=== PATIENT | female | born 1975 | race Caucasian/White ===

== ENCOUNTER 2017-10-14 20:25 | Emergency (ER) | payer OTHER, MEDICAID ==
[~2017-10-14] VITALS: Ht 152.4 cm; Wt 68.0 kg
[~2017-10-14 20:25] MED LIST: BACTRIM DS TAB1 EACH PO; CLEOCIN HCL150 MG PO; CLONAZEPAM; CYCLOBENZAPRINE5 MG PO; EXCEDRIN MIGRAINE; FIORICET 50-321 EACH PO; HTN MED; HUMIRA10 MG/0.2; HYDROCODONE-AP1 EAC6 PO; IBUPROFEN 800800 M1 PO; KEFLEX500 MG PO; LIALDA1.2 GM PO; LISINOPRIL; METROGEL-VAGINA70 GM VG; NEURONTIN 300300 M1 PO; NEXIUM; NORCO 5-325 TA1 EACH PO; NORCO 7.5-3251 EACH PO; PERCOCET 10-321 EACH PO; PERCOCET 5-3251 EACH PO; PHENERGAN 25 MG25 M1 PO; PREDNISONE; PREDNISONE 20 M20 MG PO; PRESTIQUE; PROPRANOLOL; REGLAN 10 MG TA10 MG; SEROQUEL; TENEX1 MG PO; TOPAMAX; ULTRAM 50MG TAB50 MG PO; ZOLOFT PO; [UNRECOGNIZED DRUG - OTHER]
[2017-10-14] MEDS ORDERED: NORCO 5-325 TA1 EACH PO (21:34)
[2017-10-14] MEDS ORDERED: FLEXERIL PO (21:34)
[2017-10-14] MEDS ORDERED: NAPROSYN500 MG PO (21:34)
[2017-10-14 21:48] VITALS: BP 166/83
== END 2017-10-14 21:49 | disposition home or self-care (01) ==
LOC: M.ERS 20:25
DX: S39.012A Strain of muscle, fascia and tendon of lower back, initial encounter (principal); I10 Essential (primary) hypertension; F43.10 Post-traumatic stress disorder, unspecified; K50.90 Crohn's disease, unspecified, without complications; F17.210 Nicotine dependence, cigarettes, uncomplicated; V49.9XXA Car occupant (driver) (passenger) injured in unspecified traffic accident, initial encounter; Y93.89 Activity, other specified; Y92.89 Other specified places as the place of occurrence of the external cause; Y99.8 Other external cause status

== ENCOUNTER 2017-11-01 17:05 | Emergency (ER) | payer OTHER, MEDICAID ==
[~2017-11-01] VITALS: Ht 152.4 cm; Wt 72.6 kg
[~2017-11-01 17:05] MED LIST changes: +FLEXERIL PO; +NAPROSYN500 MG PO
[2017-11-01 17:08] VITALS: BP 127/84
[2017-11-01] MEDS ORDERED: OMEPRAZOLE 20 M20 M1 PO (17:16)
[2017-11-01] MEDS ORDERED: ZANTAC 150MG T150 MG PO (17:16)
[2017-11-01] MEDS ORDERED: STELARA45 MG/0.1 PO (17:17)
[2017-11-01] MEDS ORDERED: IMURAN 50MG TAB50 M1 PO (17:17)
[2017-11-01 17:33] LABS: ABSOLUTE BASOPHILS 0.1 thou/uL (0.0-0.2); ABSOLUTE EOSINOPHILS 0.1 thou/uL (0.0-0.7); ABSOLUTE LYMPHOCYTES 2.3 thou/uL (0.8-5.3); ABSOLUTE MONOCYTES 0.6 thou/uL (0.0-1.2); ABSOLUTE NEUTROPHILS 8.4 thou/uL (1.6-8.1); BASOPHILS 0.9 %; EOSINOPHILS 1.1 %; HEMATOCRIT 36.2 % (37.0-47.0); HEMOGLOBIN 11.9 gm/dL (12.0-15.0); LYMPHOCYTES 19.9 %; MCH 28.7 pg (26.0-34.0); MCHC 32.8 g/dL (28.0-37.0); MCV 87.5 fL (80.0-100.0); MONOCYTES 5.1 %; MPV 9.3 fl. (7.2-11.1); NUCLEATED RBCS 0 /100WBC; PLATELET COUNT* 236 thou/uL (150-400); RBC 4.14 mil/uL (4.20-5.00); RDW-CV 14.6 % (10.5-14.5); WBC 11.5 thou/uL (4.0-11.0)
[2017-11-01 17:41] LABS: ANION GAP 8 mmol/L (7-16); BUN 16 mg/dL (7-18); CALCIUM 8.4 mg/dL (8.5-10.1); CHLORIDE 105 mmol/L (98-107); CO2 26 mmol/L (21-32); CREATININE 0.8 mg/dL (0.6-1.3); GLUCOSE 96 mg/dL (70-99); POTASSIUM 3.2 mmol/L (3.5-5.1); SODIUM 139 mmol/L (136-145)
[2017-11-01 17:42] LABS: APTT 25.4 Seconds (25.0-31.3); PROTIME 10.2 Seconds (9.20-11.50)
[2017-11-01 17:48] LABS: ALKALINE PHOSPHATASE 83 U/L (46-116); LIPASE 105 U/L (73-393); SGOT 14 U/L (15-37); SGPT 25 U/L (30-65); TOTAL BILIRUBIN 0.1 mg/dL (<0.1-1.0); TOTAL PROTEIN 6.7 g/dL (6.4-8.2); TROPONIN-I LEVEL <0.06 ng/mL (<0.06)
--- NOTE | 2017-11-03 09:37 | EKG ---
[place] [address] ELECTROCARDIOGRAM REPORT Name: NISHA PASTRANA Room: [place]#: [id number] Admission: 11/01/17 Attend Phys: Discharge: 11/01/17 Date of : 75 Report #: [id number] THIS REPORT FOR: //name// [facility] ED Test Date: 2017-11-01 Test Time: 17:14:50 Pat Name: NISHA PASTRANA Department: Room: Gender: F Sock Folder: LILA : 1975 Requested By: Sanford Solo Order Number: [id number] MD: Santos Fonseca Measurements Intervals [place] Rate: 94 P: 51 SC: 153 QRS: -7 QRSD: 95 T: 55 QT: 364 QTc: 456 Interpretive Statements Sinus rhythm LAE, consider biatrial enlargement Baseline wander in lead(s) II,V5 Compared to ECG 11/22/2010 21:05:43 Incomplete right bundle-branch block no longer present Electronically Signed On 11-03-2017 9:36:47 CDT by Santos Fonseca [email or web address] <ELECTRONICALLY SIGNED> By: Santos Fonseca MD, FAC 11/03/17 0936 1714 1714 Santos Fonseca MD, [facility] /EPI
== END 2017-11-01 17:25 | disposition left against medical advice (07) ==
LOC: M.ERS 17:05
PROVIDERS: Family Medicine
DX: R55 Syncope and collapse (principal); I10 Essential (primary) hypertension; K50.90 Crohn's disease, unspecified, without complications; F17.210 Nicotine dependence, cigarettes, uncomplicated

== ENCOUNTER 2018-04-02 12:30 | Emergency (ER) | payer OTHER, MEDICAID ==
[~2018-04-02] VITALS: Ht 152.4 cm; Wt 68.0 kg
[~2018-04-02 12:30] MED LIST changes: +IMURAN 50MG TAB50 M1 PO; +OMEPRAZOLE 20 M20 M1 PO; +STELARA45 MG/0.1 PO; +ZANTAC 150MG T150 MG PO
[2018-04-02] MEDS ORDERED: LISINOPRIL-HCT1 EAC1 PO (12:46)
[2018-04-02] MEDS ORDERED: NORVASC2.5 MG PO (12:47)
[2018-04-02 14:33] VITALS: BP 215/123
== END 2018-04-02 14:33 | disposition home or self-care (01) ==
LOC: M.ERS 12:30
DX: Z20.2 Contact with and (suspected) exposure to infections with a predominantly sexual mode of transmission (principal); I10 Essential (primary) hypertension; K50.90 Crohn's disease, unspecified, without complications; K31.84 Gastroparesis; F17.210 Nicotine dependence, cigarettes, uncomplicated; Z90.710 Acquired absence of both cervix and uterus; Z98.890 Other specified postprocedural states